=== PATIENT | female | born 1975 | race Caucasian/White ===

== ENCOUNTER 2020-08-17 13:27 | Outpatient (CLI) | payer BC, SELFPAY ==
--- NOTE | 2020-08-17 13:32 | MM_ITS ---
WS: [id number] BILATERAL SCREENING MAMMOGRAM WITH FIDELIA DISPLACEMENT VIEWS. CAD PERFORMED. HISTORY: SCREENING COMPARISON: 06/10/2019 and 06/09/2018 Bilateral craniocaudal and mediolateral like views are performed. Fidelia displacement views in CC and MLO projection also performed. Breasts composition: There are scattered areas of fibroglandular density. Prepectoral implants are i ntact. No suspicious masses or calcifications. MM/[place] [id number] IMPRESSION: BI-RADS: 2-Benign FOLLOW-UP: 1 Year Follow-up
== END 2020-08-17 13:28 | disposition home or self-care (01) ==
LOC: RADSHAW 13:29
PROVIDERS: Family Provider Nurse Practitioner; Visit Provider Obstetrics & Gynecology
DX: Z12.31 Encounter for screening mammogram for malignant neoplasm of breast (principal)
CPT/HCPCS: 77067

== ENCOUNTER 2022-01-26 11:22 | Outpatient (CLI) | payer BC, SELFPAY ==
--- NOTE | 2022-01-26 11:27 | MM_ITS ---
WS: [id number] BILATERAL SCREENING DIGITAL BREAST MAMMOGRAPHY WITH FIDELIA DISPLACEMENT VIEWS. CAD PERFORMED. HISTORY: SCREENING COMPARISON: 08/17/2020, 06/10/2019 Bilateral craniocaudal and mediolateral oblique views are performed with tomosynthesis and SM. Fidelia displacement views in CC and MLO projection also performed. Breasts composition: There are scattered areas of fibroglandular density. Retropectoral implants are intact. RIGHT lateral lymph node stable. No suspicious mass or calcificati on. No architectural distortion. MM/[place] [id number] IMPRESSION: BI-RADS: 2-Benign FOLLOW-UP: 1 Year Follow-up
== END 2022-01-26 11:23 | disposition home or self-care (01) ==
LOC: RAD 11:23
PROVIDERS: Visit Provider Nurse Practitioner Women's Health
DX: Z12.31 Encounter for screening mammogram for malignant neoplasm of breast (principal)
CPT/HCPCS: 77063; 77067

== ENCOUNTER → 2022-02-09 09:51 | Outpatient (BNVA) | payer BC, SELFPAY | PROVIDERS: Visit Provider Nurse Practitioner Women's Health | DX: N94.10 Unspecified dyspareunia (principal); Z90.710 Acquired absence of both cervix and uterus | CPT/HCPCS: 76830 ==

== ENCOUNTER 2022-02-26 15:21 | Outpatient (CLI) | payer BC, SELFPAY ==
--- NOTE | 2022-02-26 15:35 | XR_ITS ---
WS: [id number] SCREENING DEXA SCAN [employer] CLINICAL INFORMATION: POSTMENOPAUSAL COMPARISON: None. FINDINGS: The L1-L4 bone mineral density measures 1.118 g/cm2. This corresponds to a T score score of -0.5 and Z score of -0.1. Left femoral neck bone mineral density measures 0.884 g/cm2. This corresponds to a T score of -1.0 an d Z score of -0.5. Right femoral neck bone mineral density measures 0.897 g/cm2. This corresponds to a T score -0.9of an d Z score of -0.4. Mean femoral neck bone mineral density measures 0.890 g/cm2. This corresponds to a T score of -0.9 an d Z score of -0.5. XR/XR DEXA axial skeleton* [id number] IMPRESSION: Normal bone mineralization lumbar spine. Osteopenia femoral necks at the lower end of the range. Patient's FRAX calculated 10 year probability for major osteoporotic fracture i s 4.0 % and osteoporotic hip fracture is 0.3%.
== END 2022-02-26 15:22 | disposition home or self-care (01) ==
PROVIDERS: PCP Physician Assistant; Visit Provider Physician Assistant
DX: Z78.0 Asymptomatic menopausal state (principal)
CPT/HCPCS: 77080

== ENCOUNTER → 2023-01-02 15:32 | Outpatient (BNVA) | payer BC, SELFPAY | PROVIDERS: PCP Physician Assistant; Visit Provider Podiatrist Foot & Ankle Surgery | DX: M21.612 Bunion of left foot (principal); M21.611 Bunion of right foot; M21.621 Bunionette of right foot; M21.622 Bunionette of left foot | CPT/HCPCS: 73630 ==

== ENCOUNTER 2023-08-06 15:13 | Outpatient (CLI) | payer BC, SELFPAY ==
--- NOTE | 2023-08-06 15:18 | MM_ITS ---
WS: [id number] BILATERAL 3D TOMOSYNTHESIS DIGITAL SCREENING MAMMOGRAPHY WITH CAD CLINICAL INFORMATION: SCREENING HISTORY: Screening mammogram. No current complaints. COMPARISON: 2021 TECHNIQUE: Bilateral CC and MLO views. FINDINGS: Implant revision new compared to previous. Bilateral prepectoral breast implants appear int act. Scattered fibroglandular densities bilaterally. No suspicious focal mass, asymmetry, calcifications, or architectural distortion. No evidence of malignancy. Incidental punctate and lucent centered calci fications. IMPRESSION: MM/[place] [id number] BI-RADS: 2-Benign FOLLOW UP: 1 Year Follow-up Recommend return to annual screening mammography.
== END 2023-08-06 15:14 | disposition home or self-care (01) ==
LOC: RAD 15:13
PROVIDERS: Referring Provider Physician Assistant; Visit Provider Physician Assistant
DX: Z12.31 Encounter for screening mammogram for malignant neoplasm of breast (principal); R92.323 Mammographic fibroglandular density, bilateral breasts; Z98.82 Breast implant status
CPT/HCPCS: 77063; 77067

== ENCOUNTER → 2023-12-30 08:49 | Outpatient (BNVA) | payer BC, SELFPAY | PROVIDERS: Visit Provider Podiatrist Foot & Ankle Surgery | DX: M21.612 Bunion of left foot (principal); M21.611 Bunion of right foot; M21.621 Bunionette of right foot; M21.622 Bunionette of left foot | CPT/HCPCS: 73630 ==

== ENCOUNTER 2024-01-03 06:50 | Day surgery (SDC) | payer BC, SELFPAY ==
[2024-01-03] VITALS (10 sets, daily range): BP systolic 108–134; BP diastolic 56–74; PULSE 69–82; RESP 16–20; TEMP 36.2–36.9; O2SAT 96–100; BMI 23.0
--- NOTE | 2024-01-03 | XR_ITS ---
WS: [id number] XR foot LT 2V [id number] REASON FOR EXAM: PRUDENCE PICS FINDINGS: Osteotomy with small plate and screw fixation of the proximal phalanx of the great toe. Plate and screw arthrodesis of the metatarsal phalangeal joint of the great toe. Surgical appliances are intact and in proper position and alignment. Bone and joint alignment is appropriate. XR/XR foot LT 2V [id number] IMPRESSION: Osteotomy and arthrodesis of the great toe with fixation. No abnormality.
[2024-01-03] MEDS: BUPivacaine 0.5% INJ 30 mL 20 ML INJECTION (07:20)
[2024-01-03] MEDS: CELEcoxib 200 mg Capsule 400 MG PO (07:22)
[2024-01-03] MEDS: sodium chloride 0.9% 1,000 ML 30 ML IV (07:22)
[2024-01-03] MEDS: gabapentin 300 mg Capsule PO (07:22)
--- NOTE | 2024-01-03 07:25 | P.HPUD_ITS ---
Surgery/Procedure H&P Update DATE OF PROCEDURE: January 03, 2024 DATE H&P PERFORMED: 12/30/23 H&P UPDATE INFORMATION: I have reviewed H&P completed within last 30 days, I have examined patient prior to procedure, No changes to prior documentation and H&P is in [facility] [place] E[place] on date indicated CHANGES TO PREVIOUS DOCUMENTATION: None PREOP DIAGNOSIS: Left bunion PLANNED PROCEDURE: Operation Date: 01/03/24 08:00 Proposed Procedures p Bunionectomy Lapidus(Left) - Yaniv Banks DPM s Willie Osteotomy(Left) - Yaniv Banks DPM
--- NOTE | 2024-01-03 07:56 | ANES.PREANE2 ---
Pre-Anesthetic Assessment Height/Weight: Height 1.6 m Weight 58.967 kg Temp Pulse Resp BP Pulse Ox O2 Del Method 98.4 F 69 17 108/56 96 Room Air 01/03/24 07:10 01/03/24 07:10 01/03/24 07:10 01/03/24 07:10 01/03/24 07:10 01/03/24 07:11 Preop Diagnosis: Left bunion Operation Date: 01/03/24 08:00 Proposed Procedures p Bunionectomy Lapidus(Left) - Yaniv Banks DPM s Willie Osteotomy(Left) - Yaniv Banks DPM Familial anesthetic complications: None Was Beta Tito taken within 24 hours: N/A Was Clonidine taken within 24 hours: N/A Last intake: Intake Last Liquid Date 01/02/24 Last Liquid Time 20:00 Last Solid Date 01/02/24 Last Solid Time 18:00 Social No alcohol and No tobacco Exam alert, oriented x 3, clear to auscultation bilaterally and regular rate & rhythm Airway Mallampati: Class I Dentition: full Pulmonary alplha 1 antitrypsin - ocassional inhaler use Anesthetic Plan ASA status: 2 Anesthesia: MAC Risk of > 500 ml blood loss (7ml/kg in children): No Medications/Allergies Home Medications Medication Instructions Recorded Confirmed Last Taken Type cetirizine 10 mg tablet (Zyrtec) 10 mg PO DAILY 10/27/20 01/02/24 01/01/24 History citalopram 10 mg tablet 10 mg PO DAILY 10/27/20 01/02/24 01/01/24 History calcium carbonate 600 mg-vitamin 1 cap PO DAILY 03/29/23 01/02/24 01/01/24 History D3 12.5 mcg (500 unit) capsule (Calcium 600 with Vitamin D3) fluticasone fur. 100 mcg-umeclid 1 inh inhalation DAILY 06/21/23 01/03/24 01/03/24 History 62.5 mcg-vilant 25 mcg inhalat.powder (Trelegy Ellipta) hydrocodone 10 mg-acetaminophen 1 tab PO Q6H PRN pain 7 days #28 01/03/24 Unknown Rx 325 mg tablet tabs Allergies Allergy/AdvReac Type Severity Reaction Status Date / Time clarithromycin [From Biaxin] Allergy heart Verified 01/03/24 07:07 palpitations Current Medications Generic Name Dose Route Start Last Admin Trade Name Dora PRN Reason Stop Dose Admin Sodium Chloride 1,000 mls @ 30 mls/hr 01/03/24 07:15 01/03/24 07:22 Sodium Chloride 0.9% IV 01/04/24 07:14 30 mls/hr .Q24H LINCOLN Administration PFSH Anesthesia Medical History Osteopenia Nonalcoholic fatty liver Hyperlipidemia Alpha 1-antitrypsin 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 De Oliveira in [place] Anxiety Asthma No pertinent past medical history neghx: htn,dm,thyroid,dvt/pe PCP: Michela Luke Elaine-rectal abscess (~1999) removed in 1999 Surgical History History of mastopexy (~09/2022) H/O: hysterectomy (~2018) LAVH with bilateral salpingectomy with sling. Both ovaries spared. Uterine fibroids--- Dr. Cassia Morrow Hx of breast augmentation 2007 Revision in 2018 Family History Mother Thyroid disease Breast cancer dx age 70 Hypercholesteremia Father Hypertension Diabetes Grandfather Hypertension Paternal Diabetes Paternal Stroke Paternal Heart disease Maternal Denies family history of Colon cancer Ovarian cancer Uterine cancer Social History Smoking and tobacco/nicotine status: never used tobacco/nicotine Data Anesthesia Cardiac Studies: No Data to Display
--- NOTE | 2024-01-03 08:00 | PM.OP ---
Operative Report Date of procedure: January 03, 2024 Pre-op diagnosis: Left bunion deformity Post-op diagnosis: Same Post-op findings: None Procedure done: 1) left Lapidus bunionectomy. CPT code 12831 2) left Willie osteotomy. CPT code 08848 Implants: 3-0 Vicryl, 4-0 Vicryl, 4-0 nylon, Orlando 4 mm homerun screw. Orlando Lapidus plate with 3.5 millimeter screws, [place] nitinol staple 10 mm Specimens removed/disposition: None Pathology: None Surgeon: Yaniv Banks DPM Pellet Preparation Operator: See intraoperative documentation Estimated blood loss: 2 See intraoperative documentation Complications: No complications Brief History: Ms. Brink is a pleasant 48-year-old female presents with bilateral bunion pain left is more severe than right. 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 Her bunion pain has been progressive over the course of many years. Her bunion deformity has become more severe. She was last seen by myself January 02, 2023 and conservative treatments were recommended consisting of wide accommodative shoes, orthotics, padding and spacing, anti-inflammatories, stretching and activity modifications. She states that these have failed to alleviate her pain and that her pain is affecting her overall quality of life and makes it difficult to stand and walk at the end of the day she has significant pain that she would like to discuss surgical options. Discussed joint preserving and joint destructive options and a variety of bunionectomy techniques. Patient has good range of motion at the first metatarsal phalangeal joint and would like to maintain this. Recommending Lapidus bunionectomy and possible Willie osteotomy. I reviewed at length with the patient, the risks, potential complications, benefits, alternatives, expectations, and typical outcomes associated with the surgery. The risks and potential complications were explained in detail, including but not limited to infection, wound dehiscence or soft tissue complications, bleeding and hematoma, chronic edema, neuritis or nerve damage producing numbness or chronic pain, CRPS, failure to relieve pain or worsening pain, thick / painful / unsightly scar, limited motion / stiffness, malposition, delayed union, malunion, or nonunion, fracture, reaction to implants, anesthetic complications, venous thromboembolism, and deformity recurrence. I discussed the notion of no regrets with the patient as it pertains to complications and outcomes. The patient seemed to understand the nature of the proposed care and required convalescence. They asked appropriate questions, answered to their satisfaction. They are aware no guarantees can be made as to a satisfactory outcome and they understand there may be other possible unforeseen complications or outcomes not listed here that will be treated accordingly if they arise. There were no written or implied guarantees given to the patient. They gave informed consent to proceed. Procedure: Under mild sedation the patient was brought to the operating room and remained on the gurney in supine position. A timeout was performed. Anesthesia was then administered by the anesthesia service. Local anesthesia injected by myself consisting of Exparel and Marcaine. Well-padded pneumatic tourniquet was applied to the left ankle. The left lower extremity was scrubbed, prepped and draped utilizing normal aseptic technique. Left foot was exaggerated with an Esmarch bandage and tourniquet inflated to 250 mmHg. Attention was directed to the left foot where a bunion and hallux valgus deformity was appreciated. At dorsomedial incision was made through skin with #15 blade at the first tarsometatarsal joint medial and parallel to the extensor hallucis longus tendon with dissection carried down to the layer of periosteum and joint capsule utilizing a combination of sharp and blunt technique. Care was taken to retract and preserve neurovascular and tendinous structures. All bleeders were ligated and cauterized as necessary. First tarsometatarsal joint was distracted and prepped for arthrodesis with a bone resurfacing total, sterile saline flush, curettage, subchondral drilling and reduction of the first intermetatarsal angle parallel to the second metatarsal as well as frontal plane and transverse plane and sagittal plane reduction to neutral correcting the hallux valgus and maintaining the arch this was fixated with a Orlando 4 mm homerun screw followed by primary Lapidus plate with 3.5 millimeter screws with excellent apposition and bony compression and reduction of the deformity confirmed in the AP, oblique and lateral standard 3 views intraoperatively utilizing C arm. The incision was irrigated with saline solution and closed in a layered fashion with periosteum and deep tissue reapproximated with 3-0 Vicryl, subcutaneous tissue with 4-0 Vicryl and skin with 4-0 nylon. Residual hallux valgus deformity necessitated a Willie osteotomy which was carried out utilizing a sagittal saw and fixated utilizing a Orlando 10 mm compression staple with excellent bony apposition and compression, followed by [place] osteotomy of the hallux was rectus with the medial column. The incision was then flushed with saline solution and closed in a layered fashion with 3-0 Vicryl, 4-0 Vicryl and 4-0 nylon. Intraoperative C-arm confirmed that the hardware at the Willie osteotomy did not violate the first metatarsophalangeal joint. Smooth range of motion of the first metatarsal plantar joint was appreciated intraoperatively. Dressings consisting of Adaptic, sterile 4 x 4's, Kerlix, Prasanna wrap and a cam boot to the left lower extremity followed by deflation of the tourniquet with a prompt hyperemic response noted to the distal digits of the left foot. Patient tolerated the procedure and anesthesia well and was transferred to the PACU with vital signs stable and vascular status intact. Following a period of postoperative monitoring she will be discharged home without home care instructions and schedule follow-up. Advised 81 mg aspirin to potentially reduce risks of deep vein thrombosis postoperatively for approximate 6 weeks until she is weightbearing.
[2024-01-03] MEDS: ceFAZolin 2,000 MG in sodium chloride 0.9% (plus) 50 ML 100 MG IV (08:02)
[2024-01-03] MEDS: BUPivacaine liposome 13.3 mg/mL SDV 20 mL 266 MG INFILTRATI (08:10)
--- NOTE | 2024-01-03 09:50 | W.PM.BPON ---
Note date of Procedure: 09/20/23 Surgeon: Yaniv Banks DPM Reconsignment Clerk(s): [] Procedure(s) performed: Left Lapidus bunionectomy and Willie osteotomy Findings of the procedure(s): Left bunion Estimated blood loss: 5 mL Specimen(s) removed: No specimens Post-operative diagnosis: Left bunion No complications with anesthesia or surgery. LMA, tourniquet time 75 minutes.
--- NOTE | 2024-01-03 09:51 | PM.OP ---
Operative Report Date of procedure: January 03, 2024 Surgeon: Yaniv Banks DPM
--- NOTE | 2024-01-03 10:50 | ANE.PACU2 ---
Inpatient post-anesthesia follow up: Airway intact: Yes Vital signs: Temperature 97.2 F Pulse Rate 72 Respiratory Rate 18 Blood Pressure 124/67 Pulse Oximetry 97 Oxygen Delivery Me thod Room Air Oxygen Flow Rate 6 Fraction of Inspir ed Oxygen Hydration adequate: Yes Nausea and vomiting: No Pain level: 1 Mental status: Baseline
== END 2024-01-03 10:50 | disposition home or self-care (01) ==
PROVIDERS: PCP Physician Assistant; Visit Provider Podiatrist Foot & Ankle Surgery
PROC: (CPT 28297; principal; 2024-01-03 08:00)
PROC: (CPT 28298; 2024-01-03 08:00)
DX: M21.612 Bunion of left foot (principal); E78.5 Hyperlipidemia, unspecified
CPT/HCPCS: 28297; 28310; 73620; 76000; C1713; C9290; J0690; J1100; J1885; J2405; J2704; J3010; J3490; J7030

== ENCOUNTER → 2024-01-16 14:07 | Outpatient (BNVA) | payer BC, SELFPAY | PROVIDERS: PCP Physician Assistant; Visit Provider Podiatrist Foot & Ankle Surgery | DX: Z98.890 Other specified postprocedural states | CPT/HCPCS: 73630 ==

== ENCOUNTER → 2024-02-13 13:53 | Outpatient (BNVA) | payer BC, SELFPAY | PROVIDERS: PCP Physician Assistant; Visit Provider Podiatrist Foot & Ankle Surgery | DX: Z98.890 Other specified postprocedural states (principal) | CPT/HCPCS: 73630 ==

== ENCOUNTER → 2024-03-12 15:34 | Outpatient (BNVA) | payer BC, SELFPAY | PROVIDERS: PCP Physician Assistant; Visit Provider Podiatrist Foot & Ankle Surgery | DX: Z98.890 Other specified postprocedural states (principal); M21.611 Bunion of right foot | CPT/HCPCS: 73630 ==

== ENCOUNTER 2024-05-22 10:10 | Outpatient (CLI) | payer BC, SELFPAY | END 2024-05-22 10:11 | disposition home or self-care (01) | LOC: SPT 10:12 | PROVIDERS: PCP Physician Assistant; Visit Provider Podiatrist Foot & Ankle Surgery | DX: Z47.89 Encounter for other orthopedic aftercare (principal); M21.612 Bunion of left foot | CPT/HCPCS: L3030 ==

== ENCOUNTER 2024-06-26 05:51 | Day surgery (SDC) | payer BC, SELFPAY ==
[2024-06-26] VITALS (10 sets, daily range): BP systolic 98–151; BP diastolic 60–88; PULSE 69–87; RESP 14–19; TEMP 36.1–36.8; O2SAT 95–98; BMI 21.2
--- NOTE | 2024-06-26 06:17 | P.HP_ITS ---
Providers/Chief Complaint Primary Care Provider: Michela Luke History of Present Illness Ms. Brink is a pleasant 49-year-old female presents with right. 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 Her bunion pain has been progressive over the course of many years. Her bunion deformity has become more severe. She no longer responds positively to conservative treatments consisting ofwide accommodative shoes, orthotics, padding and spacing, anti- inflammatories, stretching and activity modifications. She states that these have failed to alleviate her pain and that her pain is affecting her overall quality of life and makes it difficult to stand and walk at the end of the day she has significant pain that she would like to discuss surgical options. Review of Systems General: Reports: 10 or more systems reviewed and unremarkable except in HPI and below Const: Denies: fever(s) or chills Eyes: Denies: change in vision Card: Denies: chest pain or palpitations Resp: Denies: dyspnea or productive cough GI: Denies: abdominal pain, nausea or vomiting : Denies: flank pain Musc: Reports: extremity pain, joint pain, joint stiffness, limited range of motion and deformity Skin/Breast: Reports: skin tenderness; Denies: rash Neuro: Reports: difficulty walking; Denies: numbness in extremities, sensory changes or frequent falls Psych: Denies: suicidal ideation Luis/Lymph: Denies: easy bruising Medications/Allergies Home Medications Medication Instructions Recorded Confirmed Last Taken Type cetirizine 10 mg tablet (Zyrtec) 10 mg PO DAILY 10/27/20 06/26/24 06/25/24 History citalopram 10 mg tablet 10 mg PO DAILY 10/27/20 06/26/24 06/25/24 History calcium 600 mg (as 1 cap PO DAILY 03/29/23 06/26/24 01/01/24 History carbonate)-vitamin D3 12.5 mcg (500 unit) capsule (Calcium with Vit D3) fluticasone fur. 100 mcg-umeclid 1 inh inhalation DAILY 06/21/23 06/26/24 06/25/24 History 62.5 mcg-vilant 25 mcg inhalat.powder (Trelegy Ellipta) albuterol sulfate 90 mcg/actuation 90 mcg inhalation PRN PRN Asthma 02/13/24 06/26/24 06/26/24 History aerosol inhaler meloxicam 15 mg tablet 15 mg PO DAILY #30 tabs 04/15/24 06/26/24 06/18/24 Rx Sole supports #1 ea 04/27/24 Unknown Rx Allergies Allergy/AdvReac Type Severity Reaction Status Date / Time clarithromycin [From Biaxin] Allergy heart Verified 06/26/24 05:59 palpitations PFSH PFSH: Medical History Osteopenia Nonalcoholic fatty liver Hyperlipidemia Alpha 1-antitrypsin 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 De Oliveira in [place] Anxiety Asthma No pertinent past medical history neghx: htn,dm,thyroid,dvt/pe PCP: Michela Luke Elaine-rectal abscess (~1999) removed in 1999 Surgical History History of mastopexy (~09/2022) H/O: hysterectomy (~2018) LAVH with bilateral salpingectomy with sling. Both ovaries spared. Uterine fibroids--- Dr. Cassia Morrow Hx of breast augmentation 2007 Revision in 2018 Family History Mother Thyroid disease Breast cancer dx age 70 Hypercholesteremia Father Hypertension Diabetes Grandfather Hypertension Paternal Diabetes Paternal Stroke Paternal Heart disease Maternal Denies family history of Colon cancer Ovarian cancer Uterine cancer Social History Smoking and tobacco/nicotine status: never used tobacco/nicotine Physical Exam Narrative: EXAM NARRATIVE: GENERAL: Patient is alert and oriented ?3 and in no acute distress. The following is a focused LEFT lower extremity exam. VASCULAR: Dorsalis pedis and posterior tibial arteries palpable +2. Capillary refill time less than 3 seconds to the distal hallux bilaterally. Calf is supple and nontender proximally and distally. Mild edema at the operative site consistent with postoperative course. NEUROLOGICAL: Protective sensation intact to light touch. DERMATOLOGICAL: Well-healed cicatrix left foot. MUSCULOSKELETAL: No pain to palpation left foot, smooth range of motion left first metatarsal head to joint with 60 degrees of dorsiflexion. Muscle strength +5 in all 3 planes left foot and ankle. Pain to palpation right bunion deformity, hypermobility at right medial column, hallux valgus right foot that is not track bound. CARDIOVASCULAR: S1, S2, normal rate, normal rhythm. Dorsalis pedis and posterior tibial arteries palpable. LUNGS: Clear to auscltation, no use of acessory muscles, no crackles or wheezes. A&P Assessment and plan (1) Bunion, right: (2) Right foot pain: Plan X-ray weightbearing 3 views standard on file biomechanical evaluation for bunion as follows Hallux noted to be an abducted position. Tibial sesamoid position: 5. 1 ? 2 IM angle is 15 degrees. Hallux abductus angle is 30 degrees. Metatarsal adductus angle is 2 degrees. Sieberg index of 2 mm. Ms. Brink is a pleasant 49-year-old female presents with right. 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 Her bunion pain has been progressive over the course of many years. Her bunion deformity has become more severe. She no longer responds positively to conservative treatments consisting ofwide accommodative shoes, orthotics, padding and spacing, anti-in flammatories, stretching and activity modifications. She states that these have failed to alleviate her pain and that her pain is affecting her overall quality of life and makes it difficult to stand and walk at the end of the day she has significant pain that she would like to discuss surgical options. In regards to her right bunion deformity. Discussed joint preserving and joint destructive options and a variety of bunionectomy techniques. Patient has good range of motion at the first metatarsal phalangeal joint and would like to maintain this. Recommending Lapidus bunionectomy and possible Willie osteotomy. I reviewed at length with the patient, the risks, potential complications, benefits, alternatives, expectations, and typical outcomes associated with the surgery. The risks and potential complications were explained in detail, including but not limited to infection, wound dehiscence or soft tissue complications, bleeding and hematoma, chronic edema, neuritis or nerve damage p roducing numbness or chronic pain, CRPS, failure to relieve pain or worsening pain, thick / painful / unsightly scar, limited motion / stiffness, malposition, delayed union, malunion, or nonunion, fracture, reaction to implants, anesthetic complications, venous thromboembolism, and deformity recurrence. I discussed the notion of no regrets with the patient as it pertains to complications and outcomes. The patient seemed to understand the nature of the proposed care and required convalescence. They asked appropriate questions, answered to their satisfaction. They are aware no guarantees can be made as to a satisfactory outcome and they understand there may be other possible unforeseen complications or outcomes not listed here that will be treated accordingly if they arise. There were no written or implied guarantees given to the patient. They gave informed consent to proceed. Coding Level of Care Code Acute Code for [facility] Diagnoses Bunion, right M21.611 Right foot pain M79.671
--- NOTE | 2024-06-26 06:17 | W.PM.OPSUD ---
Surgery/Procedure H&P Update DATE OF PROCEDURE: June 26, 2024 DATE H&P PERFORMED: 06/26/24 H&P UPDATE INFORMATION: I have reviewed H&P completed within last 30 days, I have examined patient prior to procedure, No changes to prior documentation and H&P is in [facility] [place] on date indicated PREOP DIAGNOSIS: Right bunion PRIMARY INDICATION FOR PROCEDURE: Right bunion pain PLANNED PROCEDURE: Operation Date: 06/26/24 07:00 Proposed Procedures p Bunionectomy Lapidus(Right) - Yaniv Banks DPM s Willie Osteotomy(Right) - Yaniv Banks DPM
[2024-06-26] MEDS: gabapentin 300 mg Capsule PO (06:21)
[2024-06-26] MEDS: CELEcoxib 200 mg Capsule 400 MG PO (06:22)
--- NOTE | 2024-06-26 06:29 | ANES.PREANE2 ---
Pre-Anesthetic Assessment Height/Weight: Height 5 ft 3 in Weight 120 lb O2 Del Method Room Air 06/26/24 06:14 Preop Diagnosis: Right bunion Operation Date: 06/26/24 07:00 Proposed Procedures p Bunionectomy Lapidus(Right) - Yaniv Banks DPM s Willie Osteotomy(Right) - Yaniv Banks DPM Was Beta Tito taken within 24 hours: N/A Was Clonidine taken within 24 hours: N/A Last intake: Intake Last Liquid Date 06/25/24 Last Liquid Time 22:00 Last Solid Date 06/25/24 Last Solid Time 21:30 Social No alcohol and No tobacco Exam alert, oriented x 3, clear to auscultation bilaterally and regular rate & rhythm Airway Submandibular: within normal limits Cervical ROM: within normal limits Mallampati: Class I Dentition: full Anesthetic Plan ASA status: 2 Anesthesia: General and MAC Other: No prior issues with anesthesia NPO since yesterday Patient has a history of alpha 1 antitrypsin deficiency, controlled with chronic inhaler use. Denies any cardiac issues METs greater than 4 Patient had the other side done under [place] with LMA earlier this year without issues Plan for general anesthesia with local via surgeon Medications/Allergies Home Medications Medication Instructions Recorded Confirmed Last Taken Type cetirizine 10 mg tablet (Zyrtec) 10 mg PO DAILY 10/27/20 06/26/24 06/25/24 History citalopram 10 mg tablet 10 mg PO DAILY 10/27/20 06/26/24 06/25/24 History calcium 600 mg (as 1 cap PO DAILY 03/29/23 06/26/24 01/01/24 History carbonate)-vitamin D3 12.5 mcg (500 unit) capsule (Calcium with Vit D3) fluticasone fur. 100 mcg-umeclid 1 inh inhalation DAILY 06/21/23 06/26/24 06/25/24 History 62.5 mcg-vilant 25 mcg inhalat.powder (Trelegy Ellipta) albuterol sulfate 90 mcg/actuation 90 mcg inhalation PRN PRN Asthma 02/13/24 06/26/24 06/26/24 History aerosol inhaler meloxicam 15 mg tablet 15 mg PO DAILY #30 tabs 04/15/24 06/26/24 06/18/24 Rx Sole supports #1 ea 04/27/24 Unknown Rx Allergies Allergy/AdvReac Type Severity Reaction Status Date / Time clarithromycin [From Biaxin] Allergy heart Verified 06/26/24 05:59 palpitations PFSH Anesthesia Medical History Osteopenia Nonalcoholic fatty liver Hyperlipidemia Alpha 1-antitrypsin 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 De Oliveira in [place] Anxiety Asthma No pertinent past medical history neghx: htn,dm,thyroid,dvt/pe PCP: Michela Luke Elaine-rectal abscess (~1999) removed in 1999 Surgical History History of mastopexy (~09/2022) H/O: hysterectomy (~2018) LAVH with bilateral salpingectomy with sling. Both ovaries spared. Uterine fibroids--- Dr. Cassia Morrow Hx of breast augmentation 2007 Revision in 2018 Family History Mother Thyroid disease Breast cancer dx age 70 Hypercholesteremia Father Hypertension Diabetes Grandfather Hypertension Paternal Diabetes Paternal Stroke Paternal Heart disease Maternal Denies family history of Colon cancer Ovarian cancer Uterine cancer Social History Smoking and tobacco/nicotine status: never used tobacco/nicotine Data Anesthesia Cardiac Studies: No Data to Display
[2024-06-26] MEDS: sodium chloride 0.9% 1,000 ML 30 ML IV (06:49)
[2024-06-26] MEDS: ceFAZolin 2,000 mg SDV 2000 MG IVP (07:00)
[2024-06-26] MEDS: BUPivacaine liposome 13.3 mg/mL SDV 20 mL 266 MG INJECTION (07:25)
[2024-06-26] MEDS: BUPivacaine 0.5% INJ 30 mL INJECTION (07:25)
--- NOTE | 2024-06-26 08:32 | PM.OP ---
Operative Report Date of procedure: June 26, 2024 Procedure: Date of procedure: June 26, 2024 Pre-op diagnosis: Right bunion deformity Post-op diagnosis: Same Post-op findings: None Procedure done: 1) right Lapidus bunionectomy. CPT code 46882 2) right Willie osteotomy. CPT code 93567 Implants: 3-0 Vicryl, 4-0 Vicryl, 4-0 nylon, [place] 4 mm homerun screw. [place] Lapidus plate with 3.5 millimeter screws, [place] 2.0 mm Willie screw Specimens removed/disposition: None Pathology: None Surgeon: Yaniv Banks DPM Construction Cost Estimator: Sherita Zurita Estimated blood loss: 2 mL Tourniquet time: 61 minutes Complications: No complications Brief History: Ms. Brink is a pleasant 49-year-old female presents with right bunion pain. 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 Her bunion pain has been progressive over the course of many years. Her bunion deformity has become more severe. She was last seen by myself January 02, 2023 and conservative treatments were recommended consisting of wide accommodative shoes, orthotics, padding and spacing, anti-inflammatories, stretching and activity modifications. She states that these have failed to alleviate her pain and that her pain is affecting her overall quality of life and makes it difficult to stand and walk at the end of the day she has significant pain that she would like to discuss surgical options. Brief history: Discussed joint preserving and joint destructive options and a variety of bunionectomy techniques. Patient has good range of motion at the first metatarsal phalangeal joint and would like to maintain this. Recommending Lapidus bunionectomy and possible Willie osteotomy. I reviewed at length with the patient, the risks, potential complications, benefits, alternatives, expectations, and typical outcomes associated with the surgery. The risks and potential complications were explained in detail, including but not limited to infection, wound dehiscence or soft tissue complications, bleeding and hematoma, chronic edema, neuritis or nerve damage producing numbness or chronic pain, CRPS, failure to relieve pain or worsening pain, thick / painful / unsightly scar, limited motion / stiffness, malposition, delayed union, malunion, or nonunion, fracture, reaction to implants, anesthetic complications, venous thromboembolism, and deformity recurrence. I discussed the notion of no regrets with the patient as it pertains to complications and outcomes. The patient seemed to understand the nature of the proposed care and required convalescence. They asked appropriate questions, answered to their satisfaction. They are aware no guarantees can be made as to a satisfactory outcome and they understand there may be other possible unforeseen complications or outcomes not listed here that will be treated accordingly if they arise. There were no written or implied guarantees given to the patient. They gave informed consent to proceed. Procedure: Under mild sedation the patient was brought to the operating room and remained on the gurney in supine position. A timeout was performed. Anesthesia was then administered by the anesthesia service. Local anesthesia injected by myself consisting of Exparel and Marcaine. Well-padded pneumatic tourniquet was applied to the right ankle. The right lower extremity was scrubbed, prepped and draped utilizing normal aseptic technique. Right foot was exanguinated with an Esmarch bandage and tourniquet inflated to 250 mmHg. Attention was directed to the right foot where a bunion and hallux valgus deformity was appreciated. At dorsomedial incision was made through skin with #15 blade at the first tarsometatarsal joint medial and parallel to the extensor hallucis longus tendon with dissection carried down to the layer of periosteum and joint capsule utilizing a combination of sharp and blunt technique. Care was taken to retract and preserve neurovascular and tendinous structures. All bleeders were ligated and cauterized as necessary. First tarsometatarsal joint was distracted and prepped for arthrodesis with a bone resurfacing total, sterile saline flush, curettage, subchondral drilling and reduction of the first intermetatarsal angle parallel to the second metatarsal as well as frontal plane and transverse plane and sagittal plane reduction to neutral correcting the hallux valgus and maintaining the arch this was fixated with a [place] 4 mm homerun screw followed by primary Lapidus plate with 3.5 millimeter screws with excellent apposition and bony compression and reduction of the deformity confirmed in the AP, oblique and lateral standard 3 views intraoperatively utilizing C arm. The incision was irrigated with saline solution and closed in a layered fashion with periosteum and deep tissue reapproximated with 3-0 Vicryl, subcutaneous tissue with 4-0 Vicryl and skin with 4-0 nylon. Residual hallux valgus deformity necessitated a Willie osteotomy which was carried out utilizing a sagittal saw and fixated utilizing a [place] 2 mm Willie screw, headless oriented from proximal medial to distal lateral with excellent bony apposition and compression, followed by [place] osteotomy of the hallux was rectus with the medial column. The incision was then flushed with saline solution and closed in a layered fashion with 3-0 Vicryl, 4-0 Vicryl and 4-0 nylon. Intraoperative C-arm confirmed that the hardware at the Willie osteotomy did not violate the first metatarsophalangeal joint. Smooth range of motion of the first metatarsal plantar joint was appreciated intraoperatively. Dressings consisting of Adaptic, sterile 4 x 4's, Kerlix, Prasanna wrap and a cam boot to the right lower extremity followed by deflation of the tourniquet with a prompt hyperemic response noted to the distal digits of the right foot. Patient tolerated the procedure and anesthesia well and was transferred to the PACU with vital signs stable and vascular status intact. Following a period of postoperative monitoring she will be discharged home without home care instructions and schedule follow-up. Advised 81 mg aspirin to potentially reduce risks of deep vein thrombosis postoperatively for approximate 6 weeks until she is weightbearing.
--- NOTE | 2024-06-26 08:33 | W.PM.BPON ---
Date of Procedure: 09/20/23 Surgeon: Yaniv Banks DPM [employer] Production Machine Operator(s): Sherita Zurita Procedure(s) performed: Right Lapidus bunionectomy and right Willie osteotomy Findings of the procedure(s): None Estimated blood loss: 2 mL Specimen(s) removed: No specimens Post-operative diagnosis: Right bunion deformity General LMA tourniquet time 61 minutes no complications with anesthesia or surgery
[2024-06-26] MEDS: HYDROcodone-acetaminophen 10-325 mg Tablet 1 TAB PO (09:22)
--- NOTE | 2024-06-26 09:23 | ANE.PACU2 ---
Inpatient post-anesthesia follow up: Airway intact: Yes Vital signs: Temperature 97.0 F Pulse Rate 71 Respiratory Rate 16 Blood Pressure 104/66 Pulse Oximetry 96 Oxygen Delivery Me thod Room Air Oxygen Flow Rate Fraction of Inspir ed Oxygen Hydration adequate: Yes Nausea and vomiting: No Pain level: 1 Mental status: Baseline
== END 2024-06-26 09:23 | disposition home or self-care (01) ==
PROVIDERS: PCP Physician Assistant; Visit Provider Podiatrist Foot & Ankle Surgery
PROC: (CPT 28297; principal; 2024-06-26 07:00)
PROC: (CPT 28298; 2024-06-26 07:00)
DX: M21.611 Bunion of right foot (principal); E78.5 Hyperlipidemia, unspecified; F41.9 Anxiety disorder, unspecified; J45.909 Unspecified asthma, uncomplicated
CPT/HCPCS: 28297; 28298; 76000; C1713; C9290; J0690; J1100; J2250; J2405; J2704; J3010; J3490; J7030

== ENCOUNTER → 2024-07-09 13:23 | Outpatient (BNVA) | payer BC, SELFPAY | PROVIDERS: PCP Physician Assistant; Visit Provider Podiatrist Foot & Ankle Surgery | DX: Z98.890 Other specified postprocedural states (principal); M21.611 Bunion of right foot | CPT/HCPCS: 73630 ==

== ENCOUNTER → 2024-08-06 15:33 | Outpatient (BNVA) | payer BC, SELFPAY | PROVIDERS: PCP Physician Assistant; Visit Provider Podiatrist Foot & Ankle Surgery | DX: Z98.890 Other specified postprocedural states (principal); M21.611 Bunion of right foot | CPT/HCPCS: 73630 ==

== ENCOUNTER 2024-08-31 15:14 | Outpatient (CLI) | payer BC, SELFPAY ==
--- NOTE | 2024-08-31 15:15 | MM_ITS ---
WS: [id number] BILATERAL 3D TOMOSYNTHESIS DIGITAL SCREENING MAMMOGRAPHY WITH CAD CLINICAL INFORMATION: SCREENING HISTORY: Screening mammogram. No current complaints. COMPARISON: 2023 TECHNIQUE: Bilateral CC and MLO views. FINDINGS: Bilateral breast implants appear grossly intact. Focal tenting of the LEFT breast implant along the axillary tail and subareolar region. Consider breast surgery consultation. Scattered fibroglandular densities bilaterally. No suspicious focal mass, asymmetry, calcifications, or architectural distortion. No evidence of malignancy. Incidental punctate lucent centered calcifications. MM/MM [facility] tomosynthesis [id number] IMPRESSION: DENSITY: There are scattered areas of fibroglandular density. BI-RADS: 2 - Benign. FOLLOW UP: 1 Year Follow-up Recommend return to annual screening mammography. Focal tenting of the LEFT breast implant along the axillary tail and subareolar regions. Consider breast surgery consultation. This is progressed compared to the prior studies.
== END 2024-08-31 15:15 | disposition home or self-care (01) ==
PROVIDERS: PCP Physician Assistant; Visit Provider Physician Assistant
DX: Z12.31 Encounter for screening mammogram for malignant neoplasm of breast (principal); Z98.82 Breast implant status; R92.323 Mammographic fibroglandular density, bilateral breasts; R92.1 Mammographic calcification found on diagnostic imaging of breast; R92.8 Other abnormal and inconclusive findings on diagnostic imaging of breast
CPT/HCPCS: 77063; 77067

== ENCOUNTER → 2024-09-03 14:51 | Outpatient (BNVA) | payer BC, SELFPAY | PROVIDERS: PCP Physician Assistant; Visit Provider Podiatrist Foot & Ankle Surgery | DX: Z98.890 Other specified postprocedural states (principal); M21.611 Bunion of right foot | CPT/HCPCS: 73630 ==

== ENCOUNTER 2024-11-20 16:43 | Emergency (ER) | payer BC, SELFPAY ==
[2024-11-20] VITALS (10 sets, daily range): BP systolic 90–117; BP diastolic 48–70; PULSE 73–90; RESP 16; TEMP 36.7; O2SAT 96–100
--- NOTE | 2024-11-20 17:13 | ECG_ITS ---
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 Measurements Intervals [place] Rate: 84 P: 74 GA: 156 QRS: 38 QRSD: 86 T: 68 QT: 377 QTc: 446 Interpretive Statements SINUS RHYTHM POSSIBLE LEFT ATRIAL ENLARGEMENT [-0.1mV P-WAVE IN V1/V2] NONSPECIFIC T-WAVE ABNORMALITY No previous ECG available for comparison Electronically Signed On 11-21-2024 11:57:36 CDT by Karuna Singer M.D. [email or web address] [id number]
[2024-11-20 19:29] LABS: Basophils % 0.3 %; Eosinophils % 0.3 %; Erythrocyte Sedimentation Rate < 1 mm/hr (0-15); Hematocrit 41.1 % (36-47); Lymphocytes % 25.6 %; Mean Corpuscular HGB Conc 33.6 g/dL (30-55); Mean Corpuscular Hemoglobin 29.6 pg (27-33); Mean Platelet Volume 9.7 fL (7.4-10.4); Monocytes # 0.6 10^3/uL (0.2-0.9); Monocytes % 5.3 %; Neutrophils # 8.03 10^3/uL (1.8-7.7); Neutrophils % 68.1 %; Nucleated Red Blood Cells % 0 %; Platelet Count 295 10^3/cmm (157-399); Red Blood Count 4.67 10^6/uL (3.85-5.65); White Blood Count 11.79 10^3/uL (3.29-11.43)
[2024-11-20 20:09] LABS: Alanine Aminotransferase 14 U/L (0-33); Albumin Level 4.2 g/dL (3.5-5.2); Alkaline Phosphatase 48 U/L (35-105); Anion Gap 15.9 (5-19); Aspartate Amino Transferase 15 U/L (0-32); Blood Urea Nitrogen 11 mg/dL (6-20); Calcium 9.3 mg/dL (8.5-10.5); Carbon Dioxide 25 mmol/L (22-29); Chloride 103 mmol/L (98-107); Creatine Phosphokinase 26 U/L (26-192); Creatinine Clr Calc Pharmacy 77.6926; Glomerular Filtration Rate 88.2 mL/min (90-130); Glucose 93 mg/dL (65-115); Magnesium 2.1 mg/dL (1.7-2.3); Osmolality Calculated 289 mOsm/kg (285-295); Potassium 3.9 mmol/L (3.5-5.1); Sodium 140 mmol/L (136-145); Thyroid Stimulating Hormone 0.94 uIU/mL (0.27-4.20); Total Bilirubin 0.7 mg/dL (0.15-1.2); Total Protein 6.2 g/dL (6.6-8.7)
--- NOTE | 2024-11-20 21:21 | CTR_ITS ---
PROCEDURE INFORMATION: Exam: CTA Head With Contrast, Arteriography Exam date and time: 11/20/2024 10:20 PM Age: 49 years old Clinical indication: C/O bilateral facial numbness that radiates down both upper extremites over the last week and a half. ; Additional info: Bilateral facial paresthesias, , R facial paresthesias, turned bilateral with symptoms now TECHNIQUE: Imaging protocol: Computed tomographic angiography of the head with contrast. Exam focused on the arteries. 3D rendering (Not supervised by radiologist): MIP and/or 3D reconstructed images were created by the technologist. Radiation optimization: All CT scans at this facility use at least one of these dose optimization techniques: automated exposure control; mA and/or kV adjustment per patient size (includes targeted exams where dose is matched to clinical indication); or iterative reconstruction. Contrast material: OMNI 350; Contrast volume: 100 ml; Contrast route: INTRAVENOUS (IV); COMPARISON: No relevant prior studies available. RADIATION DOSE METRICS: Total DLP (mGy-cm): 913.2 FINDINGS: ANTERIOR CIRCULATION: Right internal carotid artery: Calcified atheroma of the right cavernous ICA with no significant stenosis. 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 Right middle cerebral artery: No occlusion or significant stenosis. No aneurysm. Right anterior cerebral artery: No occlusion or significant stenosis. No aneurysm. Left internal carotid artery: Calcified atheroma of the left cavernous ICA with no significant stenosis. Left middle cerebral artery: No occlusion or significant stenosis. No aneurysm. Left anterior cerebral artery: No occlusion or significant stenosis. No aneurysm. POSTERIOR CIRCULATION: Right vertebral artery: No occlusion or significant stenosis. No aneurysm. Left vertebral artery: No occlusion or significant stenosis. No aneurysm. Basilar artery: No occlusion or significant stenosis. No aneurysm. Right posterior cerebral artery: No occlusion or significant stenosis. No aneurysm. Left posterior cerebral artery: No occlusion or significant stenosis. No aneurysm. Brain: No definite mass, mass effect, or midline shift. Cerebral ventricles: No ventriculomegaly. Bones/joints: Unremarkable. No acute fracture. Soft tissues: Unremarkable. PROCEDURE INFORMATION: Exam: CTA Neck With Contrast Exam date and time: 11/20/2024 10:20 PM Age: 49 years old Clinical indication: C/O bilateral facial numbness that radiates down both upper extremites over the last week and a half. ; Additional info: Bilateral facial paresthesias, , R facial paresthesias, turned bilateral with symptoms now TECHNIQUE: Imaging protocol: Computed tomographic angiography of the neck with contrast. Exam focused on the cervical segments of the vasculature. 3D rendering (Not supervised by radiologist): MIP and/or 3D reconstructed images were created by the technologist. Radiation optimization: All CT scans at this facility use at least one of these dose optimization techniques: automated exposure control; mA and/or kV adjustment per patient size (includes targeted exams where dose is matched to clinical indication); or iterative reconstruction. Contrast material: OMNI 350; Contrast volume: 100 ml; Contrast route: INTRAVENOUS (IV); COMPARISON: No relevant prior studies available. RADIATION DOSE METRICS: Total DLP (mGy-cm): 913.2 FINDINGS: Right common carotid artery: No stenosis. No dissection or occlusion. Right internal carotid artery: No stenosis of the extracranial segment. No dissection or occlusion. Right external carotid artery: No occlusion or stenosis of the origin. Left common carotid artery: No stenosis. No dissection or occlusion. Left internal carotid artery: No stenosis of the extracranial segment. No dissection or occlusion. Left external carotid artery: No occlusion or stenosis of the origin. Right vertebral artery: No stenosis. No dissection or occlusion. Left vertebral artery: No stenosis. No dissection or occlusion. Soft tissues: Normal. No significant soft tissue swelling. Bones/joints: The cervical spine demonstrates mild degenerative changes at multiple levels. CT/CT angio headneck* [id number] IMPRESSION: 1. No large territorial infarct or intracranial bleed. 2. No large vessel occlusion. 3. A 2 mm right ICA aneurysm. IMPRESSION: No significant arterial stenosis. REFERENCES: NASCET CRITERIA. The degree of stenosis in the cervical segment of the internal carotid artery is based on NASCET criteria. Normal is no stenosis. Mild is less than 50% stenosis. Moderate is 50-69% stenosis. Severe is 70% to 99% stenosis. Total occlusion is no detectable patent lumen.
[2024-11-20] MEDS: iohexol 350 mg/mL 500 mL Btl (per mL) IV (22:23)
--- NOTE | 2024-11-21 01:02 | W.ED.GENADLT ---
HPI - General Adult General: Chief complaint: General Medical Stated complaint: right side facial tingling heart rate varies Time Seen by Provider: 11/20/24 18:28 Source: patient Mode of arrival: ambulatory Limitations: no limitations History of Present Illness: Patient over the past 10 days and had a right facial paresthesias that transitioned over to bilateral facial paresthesias and and then proceeded to go down the entire left side of her body including her left leg. This is now bilateral face and left leg. The going over the past 10 days. Has seen primary care and had labs checked and gabapentin started. No improvement at this time.. When it started on the right face she went to a chiropractor who thought she might have TMJ and did defer manipulations. That is when it transition to bilateral and down the left side. Related Data Home Medications ?Medication ?Instructions ?Recorded ?Confirmed cetirizine 10 mg tablet (Zyrtec) 10 mg PO DAILY 10/27/20 09/03/24 citalopram 10 mg tablet 10 mg PO DAILY 10/27/20 09/03/24 calcium 600 mg (as 1 cap PO DAILY 03/29/23 09/03/24 carbonate)-vitamin D3 12.5 mcg (500 unit) capsule (Calcium with Vit D3) albuterol sulfate 90 mcg/actuation 90 mcg inhalation PRN PRN Asthma 02/13/24 09/03/24 aerosol inhaler fluticasone fur. 100 mcg-umeclid 1 inh inhalation Emphysema 09/03/24 09/03/24 62.5 mcg-vilant 25 mcg inhalat.powder (Trelegy Ellipta) Previous Rx's ?Medication ?Instructions ?Recorded Sole supports #1 ea 04/27/24 meloxicam 15 mg tablet 15 mg PO DAILY #30 tabs 09/10/24 Allergies Allergy/AdvReac Type Severity Reaction Status Date / Time clarithromycin (From Biaxin) Allergy heart Verified 09/03/24 14:57 palpitations Review of Systems General: Reports: 10 or more systems reviewed and unremarkable except in HPI and below PFSH ED PFSH: Medical History Osteopenia Nonalcoholic fatty liver Hyperlipidemia Alpha 1-antitrypsin 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 De Oliveira in [place] Anxiety Asthma No pertinent past medical history neghx: htn,dm,thyroid,dvt/pe PCP: Michela Luke Elaine-rectal abscess (~1999) removed in 1999 Surgical History History of mastopexy (~09/2022) H/O: hysterectomy (~2018) LAVH with bilateral salpingectomy with sling. Both ovaries spared. Uterine fibroids--- Dr. Cassia Morrow Hx of breast augmentation 2007 Revision in 2018 Family History Mother Thyroid disease Breast cancer dx age 70 Hypercholesteremia Father Hypertension Diabetes Grandfather Hypertension Paternal Diabetes Paternal Stroke Paternal Heart disease Maternal Denies family history of Colon cancer Ovarian cancer Uterine cancer Social History Smoking and tobacco/nicotine status: never used tobacco/nicotine Physical Exam Const: COMMON NORMALS: no acute distress, average body habitus, patient oriented x3, healthy appearing, alert and well nourished GENERAL APPEARANCE: well kempt and well developed HENMT: COMMON NORMALS: normocephalic, atraumatic, external ears normal and moist oral mucous membranes HEAD & SCALP: normocephalic and atraumatic EXTERNAL EAR: Yes external ears normal Eye: COMMON NORMALS: Equal, round and reactive pupils present, EOMs intact bilaterally and conjunctivae normal CONJUNCTIVA: Yes conjunctivae normal PUPIL: Yes Equal, round and reactive pupils present Neck/C-Spine: COMMON NORMALS: full ROM, no lymphadenopathy and supple Chest: CHEST: Yes Symmetrical chest wall rise and No Surgical scars present (Chest) Resp: COMMON NORMALS: normal respiratory effort, No retractions, No use of accessory muscles and clear to auscultation bilaterally AUSCULTATION: clear to auscultation bilaterally Cardio: COMMON NORMALS: regular rate, regular rhythm, S1 normal heart sound present, S2 normal heart sound present, No gallops present (Cardio), No clicks present (Cardio), No murmurs present (Cardio) and No rub (Cardio) RATE: regular rate RHYTHM: regular rhythm HEART SOUNDS: S1 normal heart sound present, S2 normal heart sound present and no murmurs PERIPHERAL PULSES: other (Radial pulses 2+ and symmetric) GI: COMMON NORMALS: Soft to palpation, non-tender and no masses INSPECTION: No abdominal distension PALPATION: Yes Soft to palpation, No Guarding due to palpation present (GI) and No Rebound tenderness present : COMMON NORMALS: Yes no CVA tenderness BLADDER/KIDNEY EXAM: Yes no CVA tenderness Back/Pelvis: COMMON NORMALS: no CVA tenderness Extremity: COMMON NORMALS: normal to inspection, full ROM, capillary refill normal and no clubbing, cyanosis or edema Neuro: COMMON NORMALS: patient oriented x3 SENSORIUM/ORIENTATION: Yes alert SENSORY EXAM: Yes other (Sensory grossly intact except for paresthesias as described in HPI) Psych: APPEARANCE: Yes well kempt Skin: COMMON NORMALS: no rashes or lesions noted, no wounds, turgor normal and no jaundice GENERAL SKIN EXAM: no rashes or lesions noted and turgor normal Course Vital Signs: Vital signs: Vital Signs Temperature 98.1 F 11/20/24 17:02 Pulse Rate 79 11/20/24 23:05 Respiratory Rate 16 11/20/24 23:05 Blood Pressure 113/66 11/20/24 23:05 Pulse Oximetry 99 11/20/24 23:05 Oxygen Delivery Me thod Room Air 11/20/24 17:02 [facility] - General Adult Medical Decision Making Personally reviewed CTA head and neck and see no acute abnormality, radiology does comment on a 2 mm right ICA aneurysm. This would not be consistent with causing any of patient's symptomology. Have reviewed these results with the patient. Advise follow-up with primary care and possible brain/neck MRI and neurology referral. Patient expresses understanding. Differential Diagnosis Vertebral artery dissection, CVA, Chiari, MS, other intracranial arterial stenosis, autoimmune, hemorrhage Medical Records I reviewed the patient's medical records. Lab Data I reviewed the patient's lab results. 11/20/24 19:17 11/20/24 19:17 Radiology Impressions Head/Neck CTA 11/20/24 21:21 IMPRESSION: 1. No large territorial infarct or intracranial bleed. 2. No large vessel occlusion. 3. A 2 mm right ICA aneurysm. IMPRESSION: No significant arterial stenosis. REFERENCES: NASCET CRITERIA. The degree of stenosis in the cervical segment of the internal carotid artery is based on NASCET criteria. Normal is no stenosis. Mild is less than 50% stenosis. Moderate is 50-69% stenosis. Severe is 70% to 99% stenosis. Total occlusion is no detectable patent lumen. ADDENDUM: 11/20/24 0402 THIS REPORT CONTAINS FINDINGS THAT MAY BE CRITICAL TO PATIENT CARE. The findings were verbally communicated via telephone conference with DAVION HOPE at 10:47 PM CDT on 11/20/2024. The findings were acknowledged and understood. Laboratory Results WBC 11.79 10^3/uL (3.29-11.43) H 11/20/24 19:17 RBC 4.67 10^6/uL (3.85-5.65) 11/20/24 19:17 Hgb 13.80 g/dL (11.27-16.99) 11/20/24 19:17 Hct 41.1 % (36-47) 11/20/24 19:17 MCV 88.0 fl (85-98) 11/20/24 19:17 MCH 29.6 pg (27-33) 11/20/24 19:17 MCHC 33.6 g/dL (30-55) 11/20/24 19:17 RDW 12.0 % (12.1-15.1) L 11/20/24 19:17 Plt Count 295 10^3/cmm (157-399) 11/20/24 19:17 MPV 9.7 fL (7.4-10.4) 11/20/24 19:17 Neut % (Auto) 68.1 % 11/20/24 19:17 Lymph % (Auto) 25.6 % 11/20/24 19:17 [place] % (Auto) 5.3 % 11/20/24 19:17 Eos % (Auto) 0.3 % 11/20/24 19:17 Baso % (Auto) 0.3 % 11/20/24 19:17 Neut # (Auto) 8.03 10^3/uL (1.8-7.7) H 11/20/24 19:17 Lymph # (Auto) 3.0 10^3/uL (0.8-4.8) 11/20/24 19:17 [place] # (Auto) 0.6 10^3/uL (0.2-0.9) 11/20/24 19:17 Eos # (Auto) 0.0 10^3/uL (0.0-0.8) 11/20/24 19:17 Baso # (Auto) 0.0 10^3/uL (0.0-0.1) 11/20/24 19:17 Nucleated RBC % (auto) 0 % 11/20/24 19:17 Nucleated RBCs # 0.0 /100WBC 11/20/24 19:17 ESR < 1 mm/hr (0-15) 11/20/24 19:17 Sodium 140 mmol/L (136-145) 11/20/24 19:17 Potassium 3.9 mmol/L (3.5-5.1) 11/20/24 19:17 Chloride 103 mmol/L (98-107) 11/20/24 19:17 Carbon Dioxide 25 mmol/L (22-29) 11/20/24 19:17 Anion Gap 15.9 (5-19) 11/20/24 19:17 BUN 11 mg/dL (6-20) 11/20/24 19:17 Creatinine 0.7 mg/dL (0.5-0.9) 11/20/24 19:17 GFR Calculation 88.2 mL/min (90-130) L 11/20/24 19:17 Glucose 93 mg/dL (65-115) 11/20/24 19:17 Calculated Osmolality 289 mOsm/kg (285-295) 11/20/24 19:17 Calcium 9.3 mg/dL (8.5-10.5) 11/20/24 19:17 Magnesium 2.1 mg/dL (1.7-2.3) 11/20/24 19:17 Total Bilirubin 0.7 mg/dL (0.15-1.2) 11/20/24 19:17 AST 15 U/L (0-32) 11/20/24 19:17 ALT 14 U/L (0-33) 11/20/24 19:17 Alkaline Phosphatase 48 U/L (35-105) 11/20/24 19:17 Creatine Kinase 26 U/L (26-192) 11/20/24 19:17 C-Reactive Protein 3.0 mg/L (0.0-4.9) 11/20/24 19:17 Total Protein 6.2 g/dL (6.6-8.7) L 11/20/24 19:17 Albumin 4.2 g/dL (3.5-5.2) 11/20/24 19:17 Globulin 2.0 g/dL (1.3-4.6) 11/20/24 19:17 TSH 0.94 uIU/mL (0.27-4.20) 11/20/24 19:17 All radiology interpretation(s) finalized by discharge ED provider radiology interpretation(s): See HPI Discharge Plan Discharge Patient Disposition: Home Clinical Impression: Paresthesias Condition: Stable Prescriptions: No Action citalopram 10 mg tablet 10 mg PO DAILY cetirizine [Zyrtec] 10 mg tablet 10 mg PO DAILY calcium carbonate-vitamin D3 [Calcium 600 with Vitamin D3] 600 mg-12.5 mcg (500 unit) capsule 1 cap PO DAILY albuterol sulfate 90 mcg/actuation HFA aerosol inhaler 90 mcg inhalation PRN PRN (Reason: Asthma) Trelegy Ellipta 100-62.5-25 mcg blister with device 1 inh inhalation Patient Comments: I was diagnosed with Alpha-1 antitrypsin deficiency (DME) Sole supports See Rx Instructions .Route .MEDSUPPLY Qty: 1 0RF Rx Instructions: As directed PRE-auth insurance meloxicam 15 mg tablet 15 mg PO DAILY Qty: 30 1RF Discharge Orders: Discharge ED (Routine); Ordered 11/21/24 Ordered By: Davion Hope Referrals: Michela Luke PA [Primary Care Provider, Phys[facility] Super[facility] Lifeguard] Discharge Diet: Usual diet Discharge Activity: Resume usual activity Patient Instructions: Paresthesia (ED) Print Language: Welsh Coding Level of Care Code ED Framing Specialist for Gerri Mensah
== END 2024-11-21 01:13 | disposition home or self-care (01) ==
PROVIDERS: Emergency Provider Emergency Medicine; PCP Physician Assistant
DX: R20.2 Paresthesia of skin (principal)
CPT/HCPCS: 36415; 70496; 70498; 80053; 82550; 83735; 84443; 85025; 85651; 86140; 93005; 99285